=== PATIENT | male | born 2000 | race Caucasian/White ===

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

== ENCOUNTER 2021-08-31 19:26 | Emergency (ER) | payer OTHER ==
[2021-08-31 19:31] VITALS: BP 119/83; PULSE 103; BMI 24.2
== END 2021-09-01 00:15 | disposition home or self-care (01) ==
LOC: JER 19:26
DX: R11.11 Vomiting without nausea (principal)
CPT/HCPCS: 74018-TC-FY; 99284-25

== ENCOUNTER 2023-01-29 13:08 | Emergency (ER) | payer OTHER ==
[2023-01-29 13:27] VITALS: BP 135/86; PULSE 112; RESP 20
[2023-01-29] MEDS ORDERED: DIPHTH,PERTUSS(ACELL),TET 0.5 ML DISP.SYRIN IM ONE ×2 (13:30)
== END 2023-01-29 14:50 | disposition home or self-care (01) ==
LOC: JER 13:08
PROC: 3E0234Z Introduction of Serum, Toxoid and Vaccine into Muscle, Percutaneous Approach (ICD-10-PCS; principal; 2023-01-29)
PROC: 0HQ0XZZ Repair Scalp Skin, External Approach (ICD-10-PCS; 2023-01-29)
DX: S01.01XA Laceration without foreign body of scalp, initial encounter (principal); W22.09XA Striking against other stationary object, initial encounter
CPT/HCPCS: 12002-25; 90471; 90715; 99284-25